=== PATIENT | female | born 1960 | race Caucasian/White ===

== ENCOUNTER → 2017-08-15 | Outpatient (CLI) | payer BC, OTHER ==
[~2017-08-15] MED LIST: ATIVAN 0.50.5 MG/TAB PO; CLARINEX 5MG5 MG PO; CLARITIN; COMPAZINE 110 MG/TAB PO; COUMADIN 1MG1 MG/TAB PO; DIFLUCAN 100MG100 MG PO; ELIQUIS 5MG PO; MOTRIN 400400 MG/TAB PO; NASONEX SPRAY17 GM NS; NEURONTIN300 MG/CAP PO; NEURONTIN600 MG/TAB PO; NORCO 325 MG-51 TAB PO; PEPCID 20MG TAB20 MG PO; PROTONIX 40MG T40 MG PO; SINGULAIR 110 MG/TAB PO; TAMOXIFEN CITRA20 MG PO; ZOFRAN8 MG PO; ZOVIRAX 200MG200 MG PO
== END ==
LOC: COL.RAD 13:30
DX: R10.11 Right upper quadrant pain (principal); R10.13 Epigastric pain; R14.0 Abdominal distension (gaseous); R11.0 Nausea; R53.83 Other fatigue

== ENCOUNTER → 2017-08-21 | Outpatient (CLI) | payer BC, OTHER | LOC: COL.RAD 09:41 | DX: K81.1 Chronic cholecystitis (principal); K82.8 Other specified diseases of gallbladder | CPT/HCPCS: A9537 ==

== ENCOUNTER → 2017-08-30 | Outpatient (CLI) | payer BC, OTHER | LOC: COL.RAD 10:15 | DX: R22.31 Localized swelling, mass and lump, right upper limb (principal) ==

== ENCOUNTER → 2017-10-17 | Outpatient (CLI) | payer BC, OTHER ==
[~2017-10-17] VITALS: Ht 175.3 cm; Wt 68.2 kg
[2017-10-17 10:08] VITALS: BP 134/58; PULSE 68
[2017-10-17 11:20] VITALS: BP 135/70; PULSE 74
== END ==
LOC: COL.RAD 09:18
DX: M51.36 Other intervertebral disc degeneration, lumbar region (principal); M48.061 Spinal stenosis, lumbar region without neurogenic claudication
CPT/HCPCS: J3301

== ENCOUNTER → 2017-11-07 | Outpatient (CLI) | payer BC, OTHER ==
[~2017-11-07] VITALS: Ht 175.3 cm; Wt 67.2 kg
[2017-11-07 09:49] VITALS: BP 115/68; PULSE 79
[2017-11-07 11:40] VITALS: BP 138/70; PULSE 72
== END ==
LOC: COL.RAD 09:30
DX: M51.36 Other intervertebral disc degeneration, lumbar region (principal); M48.00 Spinal stenosis, site unspecified
CPT/HCPCS: J3301

== ENCOUNTER → 2018-08-29 | Outpatient (CLI) | payer BC, OTHER | LOC: COL.RAD 13:49 | DX: R13.10 Dysphagia, unspecified (principal) ==

== ENCOUNTER → 2018-11-05 | Outpatient (CLI) | payer BC, OTHER | LOC: COL.RAD 12:10 | DX: M51.36 Other intervertebral disc degeneration, lumbar region (principal); M48.07 Spinal stenosis, lumbosacral region ==

== ENCOUNTER → 2023-02-24 | Outpatient (CLI) | payer BC, OTHER ==
[~2023-02-24] VITALS: Ht 175.3 cm; Wt 69.8 kg
[~2023-02-24] MED LIST changes: +BUSPAR DIVIDOSE15 MG PO; +CLARITIN 1010 MG/TAB PO; +WELLBUTRIN XL150 MG PO
[2023-02-24 10:21] VITALS: BP 149/84; PULSE 85; TEMP 97.9
[2023-02-24 11:10] VITALS: BP 135/70; PULSE 84
== END ==
LOC: COL.RAD 08:00
DX: M51.36 Other intervertebral disc degeneration, lumbar region (principal); M48.061 Spinal stenosis, lumbar region without neurogenic claudication
CPT/HCPCS: J0665; J3301

== ENCOUNTER → 2023-03-13 | Outpatient (CLI) | payer BC, OTHER ==
[~2023-03-13] VITALS: Ht 175.3 cm; Wt 67.6 kg
[~2023-03-13] MED LIST changes: +MOBIC15 MG PO; +RT ADVAIR 228 DISKUS IH
[2023-03-13 06:53] VITALS: BP 111/69; PULSE 75; TEMP 97.6
[2023-03-13 08:05] VITALS: BP 98/63; PULSE 80
== END ==
LOC: COL.RAD 06:28
DX: M51.36 Other intervertebral disc degeneration, lumbar region (principal); M48.061 Spinal stenosis, lumbar region without neurogenic claudication
CPT/HCPCS: J0665; J3301